=== PATIENT | male | born 1990 | race African-American/Black ===

== ENCOUNTER 2020-08-13 01:24 | Emergency (ER) | payer OTHER ==
[~2020-08-13] VITALS: Ht 182.9 cm; Wt 100.0 kg
[2020-08-13 02:04] VITALS: BP 156/105
== END 2020-08-13 02:30 ==
LOC: ER 02:02
DX: S30.811A Abrasion of abdominal wall, initial encounter (principal); Y35.833A Legal intervention involving a conducted energy device, suspect injured, initial encounter; Y93.89 Activity, other specified; Y92.89 Other specified places as the place of occurrence of the external cause; R03.0 Elevated blood-pressure reading, without diagnosis of hypertension
CPT/HCPCS: 99283